=== PATIENT | female | born 1980 | race Caucasian/White ===

== ENCOUNTER 2016-05-22 15:03 | Emergency (ER) | payer OTHER ==
[2016-05-22 15:23] VITALS: BP 130/63; PULSE 110; RESP 18; TEMP 99.1; O2SAT 97
--- NOTE | 2016-05-22 16:37 | UCPHY ---
H & P Time Seen by Provider: 05/22/16 16:33 Patient Type: New HPI/ROS: HPI: 35-year-old female presents to urgent care with chief concern sore throat and fever that onset suddenly this morning. Began feeling puny yesterday. Son is positive for strep pharyngitis as confirmed by rapid strep at MD's office. She reports associated headache, chills, decreased appetite. Denies dizziness, dysphagia, shortness of breath, chest pain, abdominal pain, nausea, vomiting, diarrhea, rash. Has used ibuprofen with some improvement. No antibiotic use within the past 3 months. 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 No apparent distress. EENT: PERRLA, EOMI. Conjunctiva clear. TMs intact, without redness or bulging. Nasal mucosa is pink without discharge. Pharynx moderately erythematous. No tonsillar abscess or exudates. Uvula midline. No drooling. No trismus. No frontal or maxillary tenderness to palpation. Neck: Bilaterally, AC nodes tender and swollen. Respiratory: Breathing unlabored. Lungs clear to auscultation bilaterally. CV: Heart rate regular. No murmur, rub, or gallop. GI: Abdomen soft, nontender. Bowel sounds positive x4 quadrants. : Deferred Skin: Warm, dry, intact. No rashes present. Musculoskeletal: Full ROM all extremities. Neuro: Alert oriented x3. Mom Constitutional: Initial Vital Signs Temperature (C) 37.3 C 05/22/16 15:19 Heart Rate 110 H 05/22/16 15:19 Respiratory Rate 18 05/22/16 15:19 Blood Pressure 130/63 H 05/22/16 15:19 O2 Sat (%) 97 05/22/16 15:19 O2 Delivery Mode Room Air Allergies/Adverse Reactions: Penicillins Allergy (Verified 11/09/11 19:47) Home Medications: Medication Instructions Recorded Azithromycin [Zithromax 250 mg 250 mg PO DAILY #6 tab 05/22/16 tab(RX)] Ortho Tri-Cyclen Lo Tablet 05/22/16 Medical Decision Making ED Course/Re-evaluation: Rapid strep and influenza swab negative. Her son has strep pharyngitis as confirmed by rapid strep. She has a fever, sore throat, anterior cervical lymphadenopathy thus I will treat her. Type 1 hypersensitivity to penicillin social be treated with a Z-Farrukh. Differential Diagnosis: Strep pharyngitis, viral pharyngitis, other viral URI, tonsillitis - Data Points Laboratory Results: 05/22/16 05/22/16 05/22/16 Unknown 15:25 15:20 Influenza Typ A,B (DFA) NEGATIVE FOR FLU (NEGATIVE) Group A Strep Screen NEGATIVE (NEGATIVE) Group A Strep DNA Pending Departure - Departure Disposition: Home, Routine, Self-Care Clinical Impression: Pharyngitis Qualifiers: Pharyngitis/tonsillitis etiology: streptococcus Qualifier Code: (J02.0) Streptococcal pharyngitis Condition: Good Instructions: Strep Throat (ED) Additional Instructions: Plan: You have pharyngitis-a throat infection. Antibiotic as prescribed for 5 days Drink plenty of fluids. You may use 600 mg of ibuprofen every 6 hours for fever, inflammation, or pain. Always take ibuprofen with food and stay well hydrated while taking. Do not exceed the maximum allowable dose in a 24 hour period which is 2400 mg. You may use 650mg of Tylenol every 8 hours. This may be staggered with the ibuprofen. Do not exceed the maximum dose in a 24 hour period which is 3 GM or 3000 mg. Cepacol lozenges or spray [id number] Followup urgently if you develop vomiting, stiff neck, difficulty swallowing, inability to keep down fluids. Otherwise followup with PCP after completion of antibiotic Prescriptions: Azithromycin [Zithromax 250 mg tab(RX)] 250 mg PO DAILY #6 tab - PQRS PQRS Measurement: Not applicable
== END 2016-05-22 16:41 | disposition home or self-care (01) ==
LOC: CED 15:03
DX: J02.0 Streptococcal pharyngitis (principal); Z88.0 Allergy status to penicillin
CPT/HCPCS: 87400-PO; 87880-PO; G0463-PO